=== PATIENT | female | born 1960 | race Caucasian/White ===

== ENCOUNTER 2017-09-08 13:50 | Emergency (ER) | payer OTHER ==
[2017-09-08 14:55] LABS: BASO # 0.1 K/uL (0.0-0.2); BASO % 0.4 % (0.0-2.0); EOS % 0.2 % (0.0-4.0); HEMOGLOBIN 15.3 g/dL (11.0-16.0); LYMPH # 1.6 K/uL (1.0-4.3); LYMPH % 8.5 % (20.0-40.0); MEAN CORPUSCULAR HEMOGLOBIN 31.6 pg (27.0-31.0); MEAN CORPUSCULAR HGB CONC 34.7 g/dL (33.0-37.0); MEAN PLATELET VOLUME 8.9 fL (7.2-11.7); MONO # 1.2 K/uL (0.0-0.8); MONO % 6.3 % (0.0-10.0); NEUT # 15.6 K/uL (1.8-7.0); NEUT % 84.6 % (50.0-75.0); PLATELET COUNT 295 K/uL (130-400); RBC 4.83 Mil/uL (3.80-5.20); RED CELL DISTRIBUTION WIDTH 13.6 % (11.5-14.5); WHITE BLOOD COUNT 18.4 K/uL (4.8-10.8)
[2017-09-08 15:02] LABS: PROTHROMBIN TIME 10.8 SECONDS (9.7-12.2)
[2017-09-08 15:19] LABS: LYMPHOCYTE 4 % (20-40); MONOCYTE 5 % (0-10); NEUTROPHIL 91 % (50-75); PLATELET ESTIMATE NORMAL (NORMAL); TOTAL CELLS COUNTED 100
[2017-09-08 15:20] LABS: ALB/GLOB RATIO 1.2 (1.0-2.1); ALBUMIN 4.9 g/dL (3.5-5.0); BLOOD UREA NITROGEN 12 mg/dL (7-17); CALCIUM 9.8 mg/dl (8.6-10.4); GFR AFRICAN-AMERICAN > 60; GFR NON-AFRICAN AMERICAN > 60
[2017-09-08 15:21] LABS: ALT/SGPT 29 U/L (9-52); AST/SGOT 30 U/L (14-36); B-TYPE NATRIURETIC PEPTIDE 21.7 pg/mL (0-900)
--- NOTE | 2017-09-08 15:33 | C.PDOC ---
History Of Present Illness 57 y/o female presents to ED for evaluation status post passing out while at dental office prior to arrival. Patient had a dental procedure and states she remembers feeling dizzy prior to passing out for 20mins as per witness. Patient reports she has not eaten since 5 am this morning and currently denies any sob, chest pain, nausea, head injury or vomiting. Time Seen by Provider: 09/08/17 14:34 Chief Complaint (Nursing): Syncope History Per: Patient History/Exam Limitations: no limitations Onset/Duration Of Symptoms: Hrs Current Symptoms Are (Timing): Still Present Past Medical History Reviewed: Historical Data, Nursing Documentation, Vital Signs Vital Signs: Last Vital Signs Temp 98.2 F 09/08/17 15:59 Pulse 102 H 09/08/17 15:59 Resp 18 09/08/17 15:59 BP 142/80 09/08/17 15:59 Pulse Ox 100 09/08/17 16:00 - Medical History PMH: Asthma, Deep Vein Thrombosis, HTN Surgical History: No Surg Hx Family History: States: No Known Family Hx - Social History Hx Alcohol Use: No Hx Substance Use: No Review Of Systems Constitutional: Negative for: Fever, Chills Cardiovascular: Negative for: Chest Pain Respiratory: Negative for: Shortness of Breath Skin: Negative for: Rash Neurological: Negative for: Weakness, Numbness, Dizziness Physical Exam - Physical Exam Appears: Non-toxic, No Acute Distress Skin: Warm, Dry, No Rash Head: Normacephalic, Swelling (left cheek) Eye(s): bilateral: Normal Inspection Oral Mucosa: Moist Neck: Normal ROM, Supple Cardiovascular: Rhythm Regular Respiratory: Normal Breath Sounds, No Rales, No Rhonchi, No Wheezing Gastrointestinal/Abdominal: Soft, No Tenderness, No Guarding, No Rebound Extremity: Bilateral: Atraumatic Neurological/Psych: Oriented x3, Normal Speech ED Course And Treatment - Laboratory Results Result Diagrams: 09/08/17 14:52 09/08/17 14:52 ECG: Interpreted By Me, Viewed By Me ECG Rhythm: Sinus Rhythm ECG Interpretation: No Acute Changes Rate From EC (BPM) O2 Sat by Pulse Oximetry: 100 (RA) Pulse Ox Interpretation: Normal Medical Decision Making Medical Decision Making: Impression: Syncope Plan: ECG ordered, labs Progress: Diagnostics reviewed. Patient remained afebrile well and in no acute distress. She reports feeling fine just mild pain to her mouth from procedure. she is taking antibiotics and has follow up next week. she feels comfortable going home and will be discharged. Advise follow up with PCP or return to ER for any worsening symptoms Disposition - Disposition Disposition: HOME/ ROUTINE Disposition Time: 16:00 Condition: GOOD Additional Instructions: Please follow up with your doctor for further evaluation Take your usual medications and antibiotics for dental infection Return to the emergency department at any time if symptoms persist or worsen. Thank you for allowing the [email or web address] team to be part of your care today. Your provider was MANDY Abbott Instructions: Syncope (Fainting) Forms: [employer] (Greenlandic) - POA Present On Arrival: None - Clinical Impression Clinical Impression: Syncope - PA / [facility] [employer] [employer] / Resident Statement MD/DO has reviewed & agrees with the documentation as recorded. - Scribe Statement The provider has reviewed the documentation as recorded by the Scribe Jamee Hallman All medical record entries made by the Christibwendy were at my direction and personally dictated by me. I have reviewed the chart and agree that the record accurately reflects my personal performance of the history, physical exam, medical decision making, and the department course for this patient. I have also personally directed, reviewed, and agree with the discharge instructions and disposition.
[2017-09-08 15:59] VITALS: BP 142/80; PULSE 102; RESP 18; TEMP 98.2
[2017-09-08 16:00] VITALS: O2SAT 100
--- NOTE | 2017-09-10 11:45 | CARD ---
APPROVED REPORT EKG Measurement Heart [id number] <Conclusion> Normal sinus rhythm Minimal voltage criteria for LVH, may be normal variant Borderline ECG
== END 2017-09-08 16:11 | disposition home or self-care (01) ==
LOC: C.ER 13:50
DX: R55 Syncope and collapse (principal); I10 Essential (primary) hypertension